=== PATIENT | female | born 1965 | race Caucasian/White ===

== ENCOUNTER → 2017-09-01 | Outpatient (CLI) | payer OTHER ==
[~2017-09-01] MED LIST: IOPAMIDOL 370 MG/ML 200 ML INFUS..BTL INJ ONE; SODIUM CHLORIDE 0.9% 50ML 50 ML ONE
--- NOTE | 2017-09-01 14:14 | Diagnostic Imaging Report ---
EXAM: CT Chest WITH contrast 09/01/2017 8:06 AM INDICATION: \[id number] \[id number] \S\HX OF MULTIPLE PULMONARY NODULES COMPARISON: CT abdomen/pelvis dated 11/13/2010 TECHNIQUE: Chest was scanned utilizing a multidetector helical scanner from the lung apex through the level of the adrenal glands without administration of IV contrast. Coronal and sagittal reformations were obtained. Routine protocol was performed. IV CONTRAST: 100 mL of Isovue-370 COMPLICATIONS: None RADIATION DOSE: Total DLP: 554.01 mGy*cm Estimated effective dose: (DLP x 0.014 x size factor) mSv CTDIvol has been reviewed. It is below the limits set by the Radiation Protocol Committee (RPC). FINDINGS: LINES/ TUBES: None. LUNGS AND AIRWAYS: 4 mm posterior right base nodule (series 3, image 106). 3 mm left lower lobe nodule (3/76), stable since 2010. 3 mm posterior left base nodule (3/97). Airways are normal. PLEURA: The pleural spaces are clear. HEART AND MEDIASTINUM: The thyroid gland is normal. No mediastinal, hilar or axillary lymphadenopathy. The heart is normal in size.. There is no pericardial effusion. UPPER ABDOMEN: Hyperdensity in the gallbladder fundus (series 2, image 128), measuring approximately 7 mm. BONES: The visualized bony thorax is within normal limits. SOFT TISSUES: Unremarkable. IMPRESSION: Subcentimeter nonspecific lung nodules as described above. Without risk factors, no follow-up is necessary. With risk factors, follow-up with low-dose chest CT in 12 months is recommended. Incidentally seen hyperdensity within gallbladder fundus, which may represent a gallstone or polyp. Recommend correlation with right upper quadrant ultrasound. Signed by: Dr. Mac Su MD on 09/01/2017 2:10 PM
== END ==
LOC: CT 07:56
PROVIDERS: ATTEND Family Medicine
DX: Z87.898 Personal history of other specified conditions (principal)
CPT/HCPCS: 71260; Q9967

== ENCOUNTER → 2018-11-19 | Outpatient (CLI) | payer OTHER ==
--- NOTE | 2018-11-19 10:49 | Diagnostic Imaging Report ---
EXAM: US ABDOMEN COMPLETE INDICATION: Generalized abdominal pain. COMPARISON: None TECHNIQUE: Transverse and longitudinal jung scale and color doppler sonographic images of the abdomen were obtained. FINDINGS: LIVER 13 cm in the right midclavicular line. Normal echogenicity of the liver with normal contour, no masses. SPLEEN 9.9 cm in maximum diameter. Normal echogenicity, no masses. GALLBLADDER No gallbladder wall thickening, distension, stone, or pericholecystic fluid. Negative reported sonographic Hammond's sign. BILE DUCTS No intra nor extra-hepatic biliary dilation. Common bile duct measures 0.3 cm PANCREAS: Visualized portions are normal. RIGHT KIDNEY: 11.7 cm Echogenicity: Normal Collecting System: No hydronephrosis Stones: None Cyst/Mass: None LEFT KIDNEY: 12.5 cm Echogenicity: Normal Collecting System: No hydronephrosis Stones: None Cyst/Mass: No evidence of solid mass. There is a simple appearing cyst within the left kidney, measuring up to 2.6 cm. No associated Doppler flow. VESSELS: Aorta: Visualized portions are within normal size limits Inferior Vena Cava: Visualized portions are normal Main Portal Vein: 1.1 cm, normal size with hepatopetal flow. FREE FLUID: None IMPRESSION: No acute sonographic abnormality. Simple appearing left renal cyst. Signed by: Dr. Ranjeet Wills MD on 11/19/2018 10:45 AM
== END ==
LOC: US 08:35
PROVIDERS: ATTEND Family Medicine
DX: R10.84 Generalized abdominal pain (principal)
CPT/HCPCS: 76700

== ENCOUNTER → 2018-12-18 | Outpatient (CLI) | payer OTHER ==
--- NOTE | 2018-12-18 12:19 | Diagnostic Imaging Report ---
EXAM: CT ABDOMEN AND PELVIS with IV CONTRAST DATE: 12/18/2018 Time stamp on Exam: 8:50 AM INDICATION: Bloating, nausea and right-sided abdominal pain COMPARISON: 02/19/2012 TECHNIQUE: The abdomen and pelvis were scanned using a multidetector helical scanner. Coronal and sagittal reformations were obtained. Routine protocol performed. Technique manipulation was accomplished to maintain the lowest dose possible to the patient. IV Contrast: 100 cc of Isovue-370 Oral Contrast: Water Radiation Dose: Total DLP 807.89 mGy*cm Estimated effective dose: DLP x 0.015 x size factor FINDINGS: LOWER THORAX: No consolidations LIVER: No masses BILIARY: The gallbladder is unremarkable. No ductal dilatation. SPLEEN: No masses PANCREAS: No masses ADRENALS: No nodules KIDNEYS: Symmetric perfusion. No enhancing masses. No hydronephrosis. GI TRACT: No distention, wall thickening or evidence of obstruction. There are diverticula in the sigmoid colon but no evidence of diverticulitis. VESSELS: Unremarkable PERITONEUM/RETROPERITONEUM: No free air or fluid LYMPH NODES: No lymphadenopathy REPRODUCTIVE ORGANS: Unremarkable BLADDER: Unremarkable SOFT TISSUES: Unremarkable BONES: No suspicious bone lesions. Mild degenerative spurring of the lower thoracic spine. IMPRESSION: 1. No acute abnormality within the abdomen or pelvis. 2. Diverticulosis without findings of diverticulitis. Signed by: Dr. Efe Florentino DO on 12/18/2018 12:16 PM
== END ==
LOC: CT 07:26
PROVIDERS: ATTEND Internal Medicine Gastroenterology
DX: R14.0 Abdominal distension (gaseous) (principal); R11.0 Nausea; R12 Heartburn
CPT/HCPCS: 74177; Q9967

== ENCOUNTER → 2021-06-08 | Outpatient (CLI) | payer OTHER | LOC: CT 13:26 | PROVIDERS: ATTEND Family Medicine | DX: S09.90XA Unspecified injury of head, initial encounter (principal) | CPT/HCPCS: 70450 ==

== ENCOUNTER → 2022-01-16 | Outpatient (CLI) | payer OTHER | LOC: CT 15:51 | PROVIDERS: ATTEND Family Medicine | DX: R06.02 Shortness of breath (principal); R05.3 Chronic cough | CPT/HCPCS: 71250 ==